=== PATIENT | female | born 1955 | race Caucasian/White ===

== ENCOUNTER 2018-01-13 13:59 | Emergency (ER) | payer OTHER ==
[~2018-01-13] VITALS: Ht 152.4 cm; Wt 73.0 kg
[~2018-01-13 13:59] MED LIST: AMARYL1 MG PO; AMBIEN 10 MG TA10 MG PO; ASPIR 8181 M1 PO; CIPRO250 M1 PO; FLOMAX0.4 MG PO; GLUCOPHAGE1000 MG PO; HYDROCODON-ACE1 EAC7 PO; HYOSCYAMINE0.375 M1 PO; LITHIUM CARBON300 M3 PO; NORCO 5-325 TA1 EACH PO; PROZAC 20 MG20 M1; SERTRALINE HCL50 MG PO; TRIAMTERENE-HC1 EAC1 PO; ZOCOR 20 MG TAB20 M1 PO; ZOFRAN ODT4 MG PO
[2018-01-13] MEDS ORDERED: PRAVACHOL20 MG PO (14:18)
[2018-01-13] MEDS ORDERED: PROTONIX40 M1 PO (14:18)
[2018-01-13] MEDS ORDERED: NEURONTIN600 MG PO (14:18)
[2018-01-13] MEDS ORDERED: LANTUS SUBQ (14:18)
[2018-01-13] MEDS ORDERED: IBUPROFEN 600600 M1 PO (15:18)
[2018-01-13] MEDS ORDERED: NORCO 5-325 TA1 EACH PO (15:18)
[2018-01-13 15:27] VITALS: BP 145/58
== END 2018-01-13 15:27 | disposition home or self-care (01) ==
LOC: M.ERS 13:59
DX: M54.2 Cervicalgia (principal); M54.5 Low back pain; M19.90 Unspecified osteoarthritis, unspecified site; K59.00 Constipation, unspecified; R01.1 Cardiac murmur, unspecified; I10 Essential (primary) hypertension; E11.9 Type 2 diabetes mellitus without complications

== ENCOUNTER 2021-03-30 00:53 | Emergency (ER) | payer OTHER, MEDICARE ==
[~2021-03-30] VITALS: Ht 144.8 cm; Wt 75.3 kg
[~2021-03-30 00:53] MED LIST changes: +IBUPROFEN 600600 M1 PO; +LANTUS SUBQ; +NEURONTIN600 MG PO; +PRAVACHOL20 MG PO; +PROTONIX40 M1 PO
[2021-03-30] MEDS ORDERED: LISINOPRIL10 MG PO (01:20)
[2021-03-30] MEDS ORDERED: NORVASC 2.5 MG2.5 M1 PO (01:20)
[2021-03-30 05:15] LABS: INFLUENZA A ANTIGEN Negative (Negative); INFLUENZA B ANTIGEN Negative (Negative)
[2021-03-30] MEDS ORDERED: HYDROCODON-ACE1 EAC7 PO (05:20)
[2021-03-30] MEDS ORDERED: PHENERGAN 25 MG25 MG PO (05:20)
[2021-03-30 05:55] VITALS: BP 144/57
== END 2021-03-30 05:55 | disposition home or self-care (01) ==
LOC: M.ERS 00:53
PROVIDERS: Personal Emergency Response Attendant
DX: J06.9 Acute upper respiratory infection, unspecified (principal); E11.9 Type 2 diabetes mellitus without complications; I10 Essential (primary) hypertension; F32.9 Major depressive disorder, single episode, unspecified; F41.9 Anxiety disorder, unspecified; Z90.49 Acquired absence of other specified parts of digestive tract; Z90.711 Acquired absence of uterus with remaining cervical stump; Z87.442 Personal history of urinary calculi; Z79.899 Other long term (current) drug therapy; Z79.4 Long term (current) use of insulin; Z79.82 Long term (current) use of aspirin; Z88.5 Allergy status to narcotic agent